=== PATIENT | female | born 1975 | race Caucasian/White ===

== ENCOUNTER 2018-04-29 14:19 | Observation (INO) | payer OTHER ==
[~2018-04-29] VITALS: Ht 162.6 cm; Wt 124.7 kg
== END 2018-04-29 15:00 | disposition home or self-care (01) ==
LOC: SPU 14:19
PROVIDERS: ADMIT Obstetrics & Gynecology; ATTEND Obstetrics & Gynecology
DX: O13.3 Gestational [pregnancy-induced] hypertension without significant proteinuria, third trimester (principal); O24.419 Gestational diabetes mellitus in pregnancy, unspecified control; Z3A.38 38 weeks gestation of pregnancy
CPT/HCPCS: 59025; G0378